=== PATIENT | female | born 1970 | race Two or more races ===

== ENCOUNTER 2020-03-27 06:05 | Day surgery (SDC) | payer OTHER ==
[~2020-03-27 06:05] MED LIST: CYMBALTA30 MG PO; NAPR500T14 PO; NEURONTIN300 MG PO; PREVACID30 MG PO; VENALIV CAPLET1 EACH PO
== END 2020-03-27 10:55 | disposition home or self-care (01) ==
LOC: CIR.AMB 06:05 → ADM 09:45 → CIR.AMB 10:55
PROVIDERS: ATTEND Surgery Surgery of the Hand
DX: M65.841 Other synovitis and tenosynovitis, right hand (principal); Z20.828 Contact with and (suspected) exposure to other viral communicable diseases

== ENCOUNTER 2020-04-10 06:05 | Day surgery (SDC) | payer OTHER | END 2020-04-10 12:45 | disposition home or self-care (01) | LOC: CIR.AMB 06:05 | PROVIDERS: ATTEND Surgery Surgery of the Hand | DX: M65.841 Other synovitis and tenosynovitis, right hand (principal) ==

== ENCOUNTER 2022-10-28 09:45 | Emergency (ER) | payer OTHER ==
[~2022-10-28] VITALS: Ht 157.5 cm; Wt 80.7 kg
[2022-10-28] MEDS ORDERED: ALBUTEROL2.5 MG/3 M IH (09:52)
[2022-10-28] MEDS ORDERED: DOXYCYCLINE HY100 M2 PO (09:52)
[2022-10-28] MEDS ORDERED: MONTELUKAST SOD10 MG PO (09:52)
[2022-10-28] MEDS ORDERED: CETIRIZINE HCL10 MG PO (09:52)
[2022-10-28] MEDS ORDERED: PREDNISONE10 M2 PO (09:53)
[2022-10-28] MEDS ORDERED: XOPENEX0.63 MG/3 IH (12:26)
== END 2022-10-28 12:52 | disposition home or self-care (01) ==
LOC: ER 09:45
DX: R06.02 Shortness of breath (principal); Z91.013 Allergy to seafood; Z20.822 Contact with and (suspected) exposure to COVID-19

== ENCOUNTER 2023-02-24 08:49 | Emergency (ER) | payer OTHER ==
[~2023-02-24] VITALS: Ht 157.5 cm; Wt 77.1 kg
[~2023-02-24 08:49] MED LIST changes: +ALBUTEROL2.5 MG/3 M IH; +CETIRIZINE HCL10 MG PO; +DOXYCYCLINE HY100 M2 PO; +MONTELUKAST SOD10 MG PO; +PREDNISONE10 M2 PO; +XOPENEX0.63 MG/3 IH
[2023-02-24] MEDS ORDERED: ROSUVASTATIN CAL5 MG PO (09:26)
[2023-02-24] MEDS ORDERED: CIMBALTA (09:28)
== END 2023-02-24 13:53 | disposition home or self-care (01) ==
LOC: ER 08:49
DX: K52.9 Noninfective gastroenteritis and colitis, unspecified (principal); Z91.013 Allergy to seafood

== ENCOUNTER 2023-07-26 06:23 | Emergency (ER) | payer OTHER ==
[~2023-07-26] VITALS: Ht 154.9 cm; Wt 75.7 kg
[~2023-07-26 06:23] MED LIST changes: +CIMBALTA; +ROSUVASTATIN CAL5 MG PO
== END 2023-07-26 08:52 | disposition home or self-care (01) ==
LOC: ER 06:23
DX: J45.909 Unspecified asthma, uncomplicated (principal); R53.81 Other malaise; Z91.013 Allergy to seafood

== ENCOUNTER 2024-03-17 14:09 | Emergency (ER) | payer OTHER ==
[~2024-03-17] VITALS: Ht 154.9 cm; Wt 81.6 kg
[~2024-03-17 14:09] MED LIST changes: +INTESTINEX680 M1 PO; +NORVASC5 MG
[2024-03-17] MEDS ORDERED: 0.9 % SODIUM CHLORIDE 500 ML IV ONE (15:00)
[2024-03-17] MEDS ORDERED: ONDANSETRON HCL 2 MG/ML VIAL IV ONE (15:00)
[2024-03-17] MEDS ORDERED: KETOROLAC TROMETHAMINE 30 MG VIAL IV ONE (15:00)
[2024-03-17] MEDS ORDERED: FAMOTIDINE/PF 20 MG/2 ML VIAL IV ONE (15:00)
[2024-03-17] MEDS ORDERED: KETOROLAC TROMETHAMINE 30 MG VIAL ONE ×2 (15:12→20:47)
[2024-03-17] MEDS ORDERED: FAMOTIDINE/PF 20 MG/2 ML VIAL ONE (15:12)
[2024-03-17] MEDS ORDERED: ONDANSETRON HCL 2 MG/ML VIAL ONE (15:12)
[2024-03-17] MEDS ORDERED: BARIUM SULFATE 450 ML ORAL.SUSP PO ONE (15:13)
[2024-03-17 15:51] LABS: HEMATOCRIT 38.3 % (36.0-45.00); HEMOGLOBIN 12.8 g/dL (12.0-15.00); MEAN CORPUSCULAR HGB CONC 33.3 g/dl (32.0-36.0); PLATELET COUNT 340 K/uL (150-450); RED BLOOD COUNT 4.56 M/uL (4.00-6.00); RED CELL DISTRIBUTION WIDTH 13.2 % (11.5-14.5)
[2024-03-17 16:11] LABS: ALBUMIN 3.8 gm/dL (3.4-5.0); BILIRUBIN TOTAL 0.36 mg/dL (0.3-1.2); CALCIUM 9.1 mg/dL (8.5-10.1); CREATININE SERUM 1.17 mg/dL (0.55-1.02); GFR 48.02; GLOBULINA 3.8 G/DL (2.4-3.5); POTASSIUM 3.99 mEq/L (3.5-5.1); TOTAL PROTEIN 7.6 gm/dL (6.4-8.2)
[2024-03-17 16:55] LABS: URINE APPEARANCE Clear; URINE BILIRRUBIN Negative (NEGATIVE); URINE BLOOD Negative; URINE COLOR Yellow; URINE GLUCOSE Negative (NEGATIVE); URINE KETONE Negative (NEGATIVE); URINE LEUKOCYTE Negative; URINE NITRATE Negative; URINE PROTEIN Negative (NEGATIVE); URINE UROBILINOGEN 0.2 E.U./dl
[2024-03-17 16:59] LABS: URINE BACTERIA 60.4 uL (0.0-1933); URINE EPITHELIAL CELLS 5.2 uL (0.0-38.8); URINE RBC 7.6 uL (0.0-20.8)
[2024-03-17 17:01] LABS: URINE CAST 0.15 uL (0.0-1.40); URINE WBC 1.6 uL (0.0-23.2)
[2024-03-17] MEDS ORDERED: INTESTINEX680 M1 PO (20:24)
[2024-03-17] MEDS ORDERED: KETOROLAC TROMETHAMINE 15 MG VIAL IV ONE (20:30)
== END 2024-03-17 20:52 ==
LOC: ER 14:10
PROVIDERS: Nurse Practitioner Family
DX: R10.9 Unspecified abdominal pain (principal); Z20.822 Contact with and (suspected) exposure to COVID-19; I10 Essential (primary) hypertension; Z91.013 Allergy to seafood
CPT/HCPCS: 36415; 74177; Q9965

== ENCOUNTER 2024-05-08 10:26 | Emergency (ER) | payer OTHER ==
[~2024-05-08] VITALS: Ht 154.9 cm; Wt 76.7 kg
[2024-05-08] MEDS ORDERED: TYLENOL325 MG PO (11:12)
[2024-05-08] MEDS ORDERED: FAMOtidine 10 MG/ML (4ML VIAL) IV ONE (11:30)
[2024-05-08] MEDS ORDERED: LEVALBUTEROL HCL 0.63 MG/3 ML SOLUTION IH ONE (11:30)
[2024-05-08] MEDS ORDERED: BENZONATATE 200 MG CAPSULE PO ONE (11:30)
[2024-05-08 12:05] LABS: HEMATOCRIT 38.9 % (36.0-45.00); HEMOGLOBIN 12.8 g/dL (12.0-15.00); MEAN CELL VOLUME 84.6 fL (80.00-100.00); MEAN CORPUSCULAR HEMOGLOBIN 27.9 pg (27.00-32.0); PLATELET COUNT 300 K/uL (150-450); RED BLOOD COUNT 4.61 M/uL (4.00-6.00); RED CELL DISTRIBUTION WIDTH 13.3 % (11.5-14.5)
[2024-05-08] MEDS ORDERED: LEVALBUTER0.63 MG/3 IH (13:22)
[2024-05-08] MEDS ORDERED: BENZONATATE200 M1 PO (13:22)
== END 2024-05-08 14:51 | disposition home or self-care (01) ==
LOC: ER 10:27
PROVIDERS: General Practice
DX: U07.1 COVID-19 (principal)

== ENCOUNTER 2024-09-04 05:24 | Day surgery (SDC) | payer OTHER ==
[2024-08-29 10:48] VITALS: BP 118/61
[2024-08-29 11:19] LABS: HEMATOCRIT 41.9 % (36.0-45.00); HEMOGLOBIN 13.8 g/dL (12.0-15.00); MEAN CELL VOLUME 84.3 fL (80.00-100.00); MEAN CORPUSCULAR HEMOGLOBIN 27.8 pg (27.00-32.0); PLATELET COUNT 363 K/uL (150-450); RED BLOOD COUNT 4.96 M/uL (4.00-6.00)
[2024-08-29 11:41] LABS: INR 0.96; PARTIAL THROMBOPLASTIN TIME 31.7 SECONDS (22.0-34.0); PROTHROMBIN TIME 10.5 SECONDS (9.0-11.5)
[2024-08-29 11:42] LABS: PH,URINE 6.5 (5.0-8.0); URINE APPEARANCE Cloudy; URINE BILIRRUBIN Negative (NEGATIVE); URINE BLOOD Negative; URINE COLOR Yellow; URINE GLUCOSE Negative (NEGATIVE); URINE KETONE Negative (NEGATIVE); URINE LEUKOCYTE Large; URINE NITRATE Negative; URINE PROTEIN Negative (NEGATIVE); URINE UROBILINOGEN 0.2 E.U./dl
[2024-08-29 11:46] LABS: URINE EPITHELIAL CELLS 127.9 uL (0.0-38.8); URINE RBC 7.9 uL (0.0-20.8); URINE WBC 253.9 uL (0.0-23.2)
[2024-08-29 12:13] LABS: URINE BACTERIA > 9821.5 uL (0.0-1933); URINE CAST 0.14 uL (0.0-1.40)
[2024-08-29 12:23] LABS: ALBUMIN 4.1 gm/dL (3.4-5.0); BILIRUBIN TOTAL 0.54 mg/dL (0.3-1.2); CALCIUM 9.4 mg/dL (8.5-10.1); CREATININE SERUM 0.77 mg/dL (0.55-1.02); GFR 77.83; GLOBULINA 3.7 G/DL (2.4-3.5); POTASSIUM 4.56 mEq/L (3.5-5.1); TOTAL PROTEIN 7.8 gm/dL (6.4-8.2)
[~2024-09-04] VITALS: Ht 154.9 cm; Wt 76.2 kg
[~2024-09-04 05:24] MED LIST changes: +BENZONATATE200 M1 PO; +DAFLONEX-XL 11300 MG PO; +HORSE CHESTNUT300 M1 PO; +LEVALBUTER0.63 MG/3 IH; +OMEGA-31000 MG; +PREVACID30 M1 PO; +TYLENOL325 MG PO; +VITAMIN D3
[2024-09-04] MEDS ORDERED: CEFAZOLIN SODIUM 1,000 MG VIAL ONE (06:45)
[2024-09-04] MEDS ORDERED: MORPHINE SULFATE 4 MG/ML VIAL IV ONE ×2 (09:45→10:15)
== END 2024-09-04 11:25 | disposition home or self-care (01) ==
LOC: CIR.AMB 05:24
PROVIDERS: ATTEND Surgery
DX: K80.10 Calculus of gallbladder with chronic cholecystitis without obstruction (principal); I10 Essential (primary) hypertension; E78.5 Hyperlipidemia, unspecified

== ENCOUNTER 2024-10-11 07:32 | Emergency (ER) | payer OTHER ==
[~2024-10-11] VITALS: Ht 154.9 cm; Wt 76.7 kg
[2024-10-11] MEDS ORDERED: HYDROCODONE/CHLORPHEN P-STIREX 5 ML ML PO ONE (09:30)
[2024-10-11] MEDS ORDERED: LEVALBUTEROL HCL 1.25 MG/3 ML SOLUTION IH ONE ×2 (09:30→10:37)
[2024-10-11] MEDS ORDERED: METHYLPREDNISOLONE SOD SUCC 125 MG VIAL IV ONE (09:30)
[2024-10-11] MEDS ORDERED: AZITHROMYCIN 500 MG VIAL IV ONE ×2 (09:30→09:33)
[2024-10-11] MEDS ORDERED: METHYLPREDNISOLONE SOD SUCC 125 MG VIAL ONE (09:33)
[2024-10-11 10:02] LABS: HEMATOCRIT 39.1 % (36.0-45.00); MEAN CORPUSCULAR HGB CONC 33.3 g/dl (32.0-36.0); PLATELET COUNT 288 K/uL (150-450); RED BLOOD COUNT 4.65 M/uL (4.00-6.00); RED CELL DISTRIBUTION WIDTH 13.5 % (11.5-14.5)
[2024-10-11 10:25] LABS: ALBUMIN 4.2 gm/dL (3.4-5.0); BILIRUBIN TOTAL 0.38 mg/dL (0.3-1.2); CALCIUM 8.8 mg/dL (8.5-10.1); CREATININE SERUM 0.98 mg/dL (0.55-1.02); GFR 58.92; GLOBULINA 3.5 G/DL (2.4-3.5); POTASSIUM 3.78 mEq/L (3.5-5.1); TOTAL PROTEIN 7.7 gm/dL (6.4-8.2)
[2024-10-11] MEDS ORDERED: FAMOTIDINE/PF 20 MG/2 ML VIAL ONE (10:43)
[2024-10-11] MEDS ORDERED: OSELTAMIVIR PHOSPHATE 75 MG CAPSULE PO ONE ×2 (10:43→11:00)
[2024-10-11 10:44] LABS: ABG PH 7.411 (7.35-7.45); ABG PO2 81.4 mmHg (80-100); ABG pCO2 39.1 mmHg (35-45); BASE EXCESS -0.1 mmol/l; BICARBONATE 24.3 mmol/l (23-25); Tco2 25.5 mmol/l
[2024-10-11] MEDS ORDERED: FAMOTIDINE/PF 20 MG in 0.9 % SODIUM CHLORIDE 8 ML IV PUSH STA (10:51)
[2024-10-11 11:31] LABS: allen test SATISFACTORY; o2 21 %; puncture site RADIAL RIGHT
[2024-10-11] MEDS ORDERED: TUSNEL LIQUID178 ML PO (13:58)
[2024-10-11] MEDS ORDERED: XOPENEX CO1.25 MG/0. IH (13:58)
[2024-10-11] MEDS ORDERED: OSEL75CA PO (13:58)
== END 2024-10-11 14:14 | disposition home or self-care (01) ==
LOC: ER 07:35
PROVIDERS: General Practice
DX: J10.1 Influenza due to other identified influenza virus with other respiratory manifestations (principal); J45.909 Unspecified asthma, uncomplicated; I10 Essential (primary) hypertension; Z20.822 Contact with and (suspected) exposure to COVID-19; Z91.013 Allergy to seafood

== ENCOUNTER 2024-10-25 09:42 | Outpatient (CLI) | payer OTHER ==
[~2024-10-25 09:42] MED LIST changes: +OSEL75CA PO; +TUSNEL LIQUID178 ML PO; +XOPENEX CO1.25 MG/0. IH
== END 2024-10-25 09:44 | disposition home or self-care (01) ==
LOC: SONOGRAMA 09:42
PROVIDERS: ATTEND Obstetrics & Gynecology
DX: R10.2 Pelvic and perineal pain (principal)

== ENCOUNTER 2024-11-19 10:42 | Emergency (ER) | payer OTHER ==
[~2024-11-19] VITALS: Ht 154.9 cm; Wt 76.2 kg
[2024-11-19] MEDS ORDERED: KETOROLAC TROMETHAMINE 60 MG VIAL IM STA (11:36)
[2024-11-19] MEDS ORDERED: KETOROLAC TROMETHAMINE 60 MG VIAL IM ONE (11:41)
== END 2024-11-19 14:13 | disposition home or self-care (01) ==
LOC: ER 10:43
DX: M54.50 Low back pain, unspecified (principal); H57.12 Ocular pain, left eye; Z87.09 Personal history of other diseases of the respiratory system; Z91.013 Allergy to seafood